=== PATIENT | female | born 2005 | race Caucasian/White ===

== ENCOUNTER 2024-05-26 21:31 | Emergency (ER) | payer OTHER ==
[~2024-05-26] VITALS: Ht 160 cm; Wt 60.5 kg
[2024-05-26 21:44] VITALS: BP 124/85; TEMP 97.3
[2024-05-26] MEDS ORDERED: Acetaminophen 325 MG TAB PO ONE (23:15)
[2024-05-26] MEDS ORDERED: Ketorolac 30 MG/ML VIAL IV ONE (23:15)
[2024-05-27 01:03] VITALS: PULSE 64
== END 2024-05-27 01:04 | disposition home or self-care (01) ==
LOC: COL.ER 21:31
DX: R51.9 Headache, unspecified (principal)
CPT/HCPCS: J0780; J1885